=== PATIENT | male | born 1995 | race Two or more races ===

== ENCOUNTER 2021-07-03 01:33 | Emergency (ER) | payer SELFPAY ==
[~2021-07-03] VITALS: Ht 177.8 cm; Wt 56.8 kg
[2021-07-03 01:35] VITALS: BP 147/96
[2021-07-03] MEDS ORDERED: ACETAMINOPHEN/CODEINE 300-30 MG TABLET PO ONE (02:45)
== END 2021-07-03 02:53 | disposition home or self-care (01) ==
LOC: EMS 01:33
DX: K08.89 Other specified disorders of teeth and supporting structures (principal); K04.7 Periapical abscess without sinus
CPT/HCPCS: 99283